=== PATIENT | male | born 1980 | race African-American/Black ===

== ENCOUNTER 2017-10-08 10:54 | Emergency (ER) | payer MEDICAID ==
[~2017-10-08] VITALS: Ht 172.7 cm; Wt 108.9 kg
[~2017-10-08 10:54] MED LIST: NOR10 PO
[2017-10-08 10:58] VITALS: BP_SYST 161
[2017-10-08] MEDS ORDERED: KETOROLAC TROMETHAMINE 60 MG/2 ML VIAL IM ONE (11:45)
[2017-10-08 12:14] LABS: HEMATOCRIT 37.5 % (36-54); HEMOGLOBIN 11.5 g/dL (14.0-18.0); MEAN CORPUSCULAR HEMOGLOBIN 22 pg (27-31); MEAN CORPUSCULAR HGB CONC 31 % (32-36); MEAN CORPUSCULAR VOLUME 70 fL (79.0-98.0); PLATELET COUNT (AUTO) 314 K/uL (130-430); RED BLOOD CELL COUNT(AUTO) 5.34 MIL/uL (4.2-6.2); RED CELL DISTRIBUTION WIDTH 13.8 % (9.0-15.0); WHITE BLOOD COUNT (AUTO) 5.3 K/uL (4.8-10.8)
[2017-10-08 12:29] LABS: CALCIUM 8.7 mg/dL (8.4-11.0); CREATININE 0.97 mg/dL (0.55-1.30); POTASSIUM 3.4 mmol/L (3.5-5.1)
[2017-10-08 12:32] LABS: PROTHROMBIN TIME 9.9 SECS (9.5-12.5)
[2017-10-08 12:35] LABS: ALBUMIN 3.9 g/dL (3.4-4.8); TOTAL BILIRUBIN 0.3 mg/dL (0.0-1.0)
[2017-10-08 12:41] LABS: ATYPICAL LYMPHOCYTES % 3 % (0-0); BAND % (MANUAL) 1 % (0-6); EOSINOPHILS % (MANUAL) 1 % (0-7); LYMPHOCYTES % (MANUAL) 48 % (20-46); MONOCYTES % (MANUAL) 6 % (0-11)
[2017-10-08 12:42] LABS: BASOPHILS % (MANUAL) 0 % (0-2)
[2017-10-08 13:23] VITALS: BP_SYST 137
== END 2017-10-08 13:23 | disposition home or self-care (01) ==
LOC: SED 10:54
DX: R07.89 Other chest pain (principal); I10 Essential (primary) hypertension
CPT/HCPCS: 36415; 71010; 80053; 80061; 83880; 84484; 85007; 85027; 85610; 85730; 93005; 96372; 99285; J1885

== ENCOUNTER 2019-06-06 10:23 | Emergency (ER) | payer MEDICAID ==
[~2019-06-06] VITALS: Ht 172.7 cm; Wt 108.9 kg
[2019-06-06 10:46] VITALS: BP_SYST 189; BP_SYST 191
--- NOTE | 2019-06-06 10:50 | NUR ---
Patient to ER bed 8 to gown for evaluation. Side rails up.
--- NOTE | 2019-06-06 11:00 | NUR ---
PT laying on the gurney who advised that he is experiencing 0/10 pain but his back is painful when moving. PT is not presenting any signs of acute distress.
--- NOTE | 2019-06-06 11:05 | NUR ---
ER at bedside examining patient.
[2019-06-06] MEDS ORDERED: ACETAMINOPHEN 500 MG TABLET PO ONE (11:30)
[2019-06-06 12:03] VITALS: BP_SYST 170
--- NOTE | 2019-06-06 12:05 | NUR ---
Patient given written and verbal discharge instructions and verbalizes understanding. ER MD discussed with patient the results and treatment provided. Patient in stable condition. ID arm band removed. Rx of Naproxyn given. Patient educated on pain management and to follow up with PMD. Pain Scale2/10 tolerable for patient . Opportunity for questions provided and answered. Medication side effect fact sheet provided.
== END 2019-06-06 12:05 | disposition home or self-care (01) ==
LOC: SED 10:23
DX: S39.012A Strain of muscle, fascia and tendon of lower back, initial encounter (principal); I10 Essential (primary) hypertension; X58.XXXA Exposure to other specified factors, initial encounter; Y93.89 Activity, other specified; Y92.89 Other specified places as the place of occurrence of the external cause; Y99.8 Other external cause status
CPT/HCPCS: 72100-TC; 99283

== ENCOUNTER 2019-12-01 14:03 | Emergency (ER) | payer MEDICAID ==
[~2019-12-01] VITALS: Ht 172.7 cm; Wt 111.1 kg
[2019-12-01 14:31] VITALS: BP_SYST 137
--- NOTE | 2019-12-01 14:34 | NUR ---
ambulated to bed3
--- NOTE | 2019-12-01 14:36 | NUR ---
Patient arrived in the ED c/o cough, chest congestion, headaches that started 3 days ago - Patient is taking cough meds and OTC cold meds; no relief per patient. Denied any fevers or chills. Patient is alert and oriented x4, respirations even and unlabored, speaking in full sentences, ambulating with a steady gait. VSS, pain level 6/10. Denied any chest pain or SOB. Informed of wait time. Instructed to notify ED staff for any changes in condition or worsening of symptoms. Patient verbalized understanding.
--- NOTE | 2019-12-01 14:56 | NUR ---
Patient taken to Radiology in stable condition.
--- NOTE | 2019-12-01 15:01 | NUR ---
Patient is back from Radiology, in stable condition.
--- NOTE | 2019-12-01 15:04 | NUR ---
ER SHOSHANA Guzman at bedside examining patient.
[2019-12-01] MEDS ORDERED: IPRATROPIUM/ALBUTEROL SULFATE 3 ML AMPUL.NEB (DUONEB) INH ONE (15:15)
--- NOTE | 2019-12-01 15:28 | NUR ---
Patient given written and verbal discharge instructions and verbalizes understanding. ER MD discussed with patient the results and treatment provided. Patient in stable condition. ID arm band removed. Rx of Prednisone, Albuterol, Flonase, and Ibuprofen given. Patient educated on pain management and to follow up with PMD. Pain Scale 0/10. Opportunity for questions provided and answered. Medication side effect fact sheet provided.
[2019-12-01 15:29] VITALS: BP_SYST 137
== END 2019-12-01 15:29 | disposition home or self-care (01) ==
LOC: SED 14:03
DX: J06.9 Acute upper respiratory infection, unspecified (principal); I10 Essential (primary) hypertension; Z79.899 Other long term (current) drug therapy
CPT/HCPCS: 71046-TC; 99283

== ENCOUNTER 2020-01-27 09:19 | Emergency (ER) | payer MEDICAID ==
[~2020-01-27] VITALS: Ht 172.7 cm; Wt 111.1 kg
[2020-01-27 09:20] VITALS: BP_SYST 133
--- NOTE | 2020-01-27 09:20 | NUR ---
BROUGHT BACK TO BED #7 AND TRIAGED. REPORT GIVEN TO GRANT
--- NOTE | 2020-01-27 09:35 | NUR ---
Patient presentes to ER C/O COUGH Patient A&Ox4, ambulatory to ER, afebrile, skin pink and warm, cough, nasal congestion, pain 05/11, denies N/V/D. Patient states he has cough nasal congestion, and sore throat today.
--- NOTE | 2020-01-27 09:46 | NUR ---
STACI Armendariz at bedside examining patient.
[2020-01-27] MEDS ORDERED: ALBUTEROL SULFATE 0.083% 2.5 MG/3 ML VIAL.NEB INH ONE ×2 (11:00→11:11)
--- NOTE | 2020-01-27 11:20 | NUR ---
Patient given written and verbal discharge instructions and verbalizes understanding. ER MD discussed with patient the results and treatment provided. Patient in stable condition. ID arm band removed. Rx of AUGMENTIN, PROMETHAZINE, ALBUTEROL given. Patient educated on pain management and to follow up with PMD. Pain Scale 0/10. Opportunity for questions provided and answered. Medication side effect fact sheet provided.
[2020-01-27 19:32] VITALS: BP_SYST 149
== END 2020-01-27 11:20 | disposition home or self-care (01) ==
LOC: SED 09:19
DX: B34.9 Viral infection, unspecified (principal); I10 Essential (primary) hypertension
CPT/HCPCS: 71046; 94640; 99283; J7613

== ENCOUNTER 2020-10-17 23:21 | Emergency (ER) | payer MEDICAID ==
[~2020-10-17] VITALS: Ht 172.7 cm; Wt 108.9 kg
[2020-10-17 23:25] VITALS: BP_SYST 174
--- NOTE | 2020-10-17 23:39 | NUR ---
Patient to ER bed 6 to gown for evaluation. Side rails up. Report given to RICHY JIANG.
--- NOTE | 2020-10-17 23:45 | NUR ---
ER DR. RAYMUNDO AT THE BEDSIDE EVALUATING PT.
--- NOTE | 2020-10-17 23:52 | NUR ---
PT CAME IN FROM HOME WITH C/O RIGHT GREAT TOE PAIN. 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 THE PAIN INCREASED TODAY AND TOE IS SWOLLEN AND TENDER TO TOUCH. MOTION IS LIMITED AND PAINFUL. AAOX4, V/S STABLE
--- NOTE | 2020-10-17 23:54 | NUR ---
PORTABLE X-RAY AT THE BEDSIDE
--- NOTE | 2020-10-18 00:50 | NUR ---
PT PROVIDED WITH MED/SURG SHOE FOR COMFORT MEASURES WHILE AMBULATING.
[2020-10-18] MEDS ORDERED: IBUPROFEN 800 MG TABLET PO ONE (01:00)
[2020-10-18 01:05] VITALS: BP_SYST 174
--- NOTE | 2020-10-18 01:05 | NUR ---
Patient given written and verbal discharge instructions and verbalizes understanding. ER MD discussed with patient the results and treatment provided. Patient in stable condition. ID arm band removed. Rx of IBUPROFEN given. Patient educated on pain management and to follow up with PMD. Pain Scale 4/10. Opportunity for questions provided and answered. Medication side effect fact sheet provided.
== END 2020-10-18 01:05 | disposition home or self-care (01) ==
LOC: SED 23:21
DX: S93.502A Unspecified sprain of left great toe, initial encounter (principal); I10 Essential (primary) hypertension; X58.XXXA Exposure to other specified factors, initial encounter; Y93.89 Activity, other specified; Y92.89 Other specified places as the place of occurrence of the external cause; Y99.8 Other external cause status
CPT/HCPCS: 99283

== ENCOUNTER 2021-07-01 04:35 | Emergency (ER) | payer MEDICAID ==
[~2021-07-01] VITALS: Ht 172.7 cm; Wt 111.6 kg
[2021-07-01 04:40] VITALS: BP_SYST 182
--- NOTE | 2021-07-01 04:45 | NUR ---
Patient to ER bed 6 to gown for evaluation. Side rails up. Report given to Mary Ann JIANG.
--- NOTE | 2021-07-01 04:55 | NUR ---
Patient BIB by family from home. C/O left foot pain x 2 days. Patient reported, patient had left foot pain for 2 days, denied injury or trauma. A/O,X4, left heel pain, pain rate 6/10, no numbness or tingling.
--- NOTE | 2021-07-01 04:59 | NUR ---
ER at bedside examining patient.
[2021-07-01] MEDS ORDERED: KETOROLAC TROMETHAMINE 30 MG VIAL IM ONE (05:15)
--- NOTE | 2021-07-01 05:24 | NUR ---
X-ray at bedside.
--- NOTE | 2021-07-01 06:10 | NUR ---
Patient came back from CT scan.
[2021-07-01] MEDS ORDERED: IBUP-1969 PO (06:38)
[2021-07-01 07:01] VITALS: BP_SYST 144
--- NOTE | 2021-07-01 07:01 | NUR ---
Patient given written and verbal discharge instructions and verbalizes understanding. ER MD discussed with patient the results and treatment provided. Patient in stable condition. ID arm band removed. Rx of Ibuprofen given. Patient educated on pain management and to follow up with PMD. Pain Scale 2/10. Opportunity for questions provided and answered. Medication side effect fact sheet provided.
== END 2021-07-01 07:01 | disposition home or self-care (01) ==
LOC: SED 04:35
DX: M77.32 Calcaneal spur, left foot (principal); I10 Essential (primary) hypertension; Z79.899 Other long term (current) drug therapy
CPT/HCPCS: 73600; 73620; 73700; 76376; 96372; 99284; J1885

== ENCOUNTER 2021-07-16 11:47 | Emergency (ER) | payer MEDICAID ==
[~2021-07-16] VITALS: Ht 172.7 cm; Wt 95.3 kg
[~2021-07-16 11:47] MED LIST changes: +IBUP-1969 PO
--- NOTE | 2021-07-16 11:50 | NUR ---
Patient to ER bed 3 to gown for evaluation. Side rails up.
[2021-07-16 11:54] VITALS: BP_SYST 175
--- NOTE | 2021-07-16 11:55 | NUR ---
ER at bedside examining patient.
--- NOTE | 2021-07-16 12:01 | NUR ---
pt arrives form home w/ c/o right ear pain 5/10 x 3 days ago. pt reports taking Motrin at home w/out relief. While taking VSS pt's BP was noted to be elevated at 175/116, HR 98. Pt reports taking his BP meds this am
[2021-07-16] MEDS ORDERED: cloNIDine HCL 0.1 MG TABLET PO ONE (12:15)
--- NOTE | 2021-07-16 12:44 | NUR ---
rapid covid swab collected and sent to the lab
[2021-07-16] MEDS ORDERED: CORTEARS EACH EAR (13:19)
[2021-07-16] MEDS ORDERED: IBUP-1971 PO (13:19)
[2021-07-16 13:40] VITALS: BP_SYST 168
--- NOTE | 2021-07-16 13:42 | NUR ---
Patient given written and verbal discharge instructions and verbalizes understanding. ER MD discussed with patient the results and treatment provided. Patient in stable condition. ID arm band removed. Rx of motrin and cortisporin drops given. Patient educated on pain management and to follow up with PMD. Pain Scale 3/10. Opportunity for questions provided and answered. Medication side effect fact sheet provided.
--- NOTE | 2021-07-16 14:23 | NUR ---
pt left at this time
== END 2021-07-16 13:42 | disposition home or self-care (01) ==
LOC: SED 11:47
DX: H60.91 Unspecified otitis externa, right ear (principal); I10 Essential (primary) hypertension; Z79.899 Other long term (current) drug therapy; Z20.822 Contact with and (suspected) exposure to COVID-19
CPT/HCPCS: 36415; 99283

== ENCOUNTER 2021-12-05 21:23 | Emergency (ER) | payer MEDICAID, SELFPAY ==
[~2021-12-05] VITALS: Ht 172.7 cm; Wt 113.4 kg
[~2021-12-05 21:23] MED LIST changes: +CORTEARS EACH EAR; +IBUP-1971 PO
[2021-12-05 21:48] VITALS: BP_SYST 172
--- NOTE | 2021-12-05 21:53 | NUR ---
Patient to ER tent for evaluation.
[2021-12-05] MEDS ORDERED: LISINOPRIL 10 MG TABLET (PRINIVIL) PO ONE (22:00)
--- NOTE | 2021-12-05 22:00 | NUR ---
Patient brought in complaining of cough and congestion x 2 days. denies any shortness of breath, speaking in full sentences. Work is requesting he be tested for Covid. notified of patient's BP.
[2021-12-05] MEDS ORDERED: LISINOPRIL 10 MG TABLET (PRINIVIL) ONE ×2 (22:32→22:34)
--- NOTE | 2021-12-05 23:01 | NUR ---
ER at bedside examining patient.
[2021-12-06] MEDS ORDERED: CHOL200019 PO (00:16)
[2021-12-06] MEDS ORDERED: IVER3TAB PO (00:16)
[2021-12-06] MEDS ORDERED: ZINC50TA69 PO (00:16)
[2021-12-06 00:33] VITALS: BP_SYST 168
--- NOTE | 2021-12-06 00:33 | NUR ---
Patient given written and verbal discharge instructions and verbalizes understanding. ER MD discussed with patient the results and treatment provided. Patient in stable condition. ID arm band removed. IV catheter removed intact and dressing applied, no active bleeding. Rx of vitamin d3, zinc, ivermectin given. Patient educated on pain management and to follow up with PMD. Pain Scale 0/10 Opportunity for questions provided and answered. Medication side effect fact sheet provided.
== END 2021-12-06 00:33 | disposition home or self-care (01) ==
LOC: SED 21:23
DX: U07.1 COVID-19 (principal); I10 Essential (primary) hypertension
CPT/HCPCS: 36415; 99283